=== PATIENT | male | born 1960 | race Caucasian/White ===

== ENCOUNTER 2016-03-20 13:43 | Outpatient (CLI) | payer MEDICARE, MEDICAID | END 2016-03-20 13:44 | disposition home or self-care (01) | DX: M19.011 Primary osteoarthritis, right shoulder (principal) ==

== ENCOUNTER 2016-07-09 10:46 | Outpatient (CLI) | payer MEDICARE, MEDICAID | END 2016-07-09 10:47 | disposition home or self-care (01) | DX: E11.65 Type 2 diabetes mellitus with hyperglycemia (principal); I10 Essential (primary) hypertension; E78.5 Hyperlipidemia, unspecified; Z12.5 Encounter for screening for malignant neoplasm of prostate; Z13.0 Encounter for screening for diseases of the blood and blood-forming organs and certain disorders involving the immune mechanism; Z78.9 Other specified health status; Z79.4 Long term (current) use of insulin | CPT/HCPCS: 36415; 80053; 80061; 83036; 84443; 85025; 86706; 86708; G0103 ==

== ENCOUNTER 2016-08-13 10:48 | Outpatient (CLI) | payer MEDICARE, MEDICAID ==
[2016-08-13 17:58] LABS: CALCIUM 8.8 mg/dL (8.5-10.3); CREATININE 1.2 mg/dL (0.6-1.2); POTASSIUM 3.4 mmol/L (3.5-5.0)
== END 2016-08-13 10:49 | disposition home or self-care (01) ==
LOC: LAB.F 10:48
PROVIDERS: ATTEND Nurse Practitioner Family
DX: N18.3 Chronic kidney disease, stage 3 (moderate) (principal)
CPT/HCPCS: 36415; 80048

== ENCOUNTER 2016-11-12 23:50 | Outpatient (CLI) | payer MEDICARE, MEDICAID | END 2016-11-12 23:51 | disposition home or self-care (01) | LOC: LAB.R 23:50 | PROVIDERS: ATTEND Family Medicine | DX: L97.329 Non-pressure chronic ulcer of left ankle with unspecified severity (principal) | CPT/HCPCS: 87070; 87205 ==

== ENCOUNTER 2017-03-29 14:43 | Outpatient (CLI) | payer MEDICARE, MEDICAID ==
[2017-03-29 18:14] LABS: HB2 TOTAL 10.6 g/dL; HEMOGLOBIN A1C 0.5 g/dL; HEMOGLOBIN A1C % 6.5 % (4.6-6.2)
[2017-03-29 18:22] LABS: ALBUMIN 3.3 g/dL (3.2-5.5); CALCIUM 8.4 mg/dL (8.5-10.3); CREATININE 1.1 mg/dL (0.6-1.2); PHOSPHORUS 3.1 mg/dL (2.5-4.6)
== END 2017-03-29 14:44 | disposition home or self-care (01) ==
LOC: LAB.F 14:43
PROVIDERS: ATTEND Acupuncturist
DX: E11.42 Type 2 diabetes mellitus with diabetic polyneuropathy (principal); E11.65 Type 2 diabetes mellitus with hyperglycemia
CPT/HCPCS: 36415; 80069; 83036

== ENCOUNTER 2017-04-23 08:00 | Outpatient (CLI) | payer MEDICARE, MEDICAID | END 2017-04-23 08:01 | disposition home or self-care (01) | LOC: LAB.R 08:00 | PROVIDERS: ATTEND Nurse Practitioner Family | DX: E11.9 Type 2 diabetes mellitus without complications (principal) | CPT/HCPCS: 82043 ==

== ENCOUNTER 2018-03-07 11:20 | Outpatient (CLI) | payer MEDICARE, MEDICAID ==
[2018-03-07 19:05] LABS: CALCIUM 8.8 mg/dL (8.5-10.3)
[2018-03-07 19:14] LABS: CREATININE,URINE 62.1 mg/dL; MICROALBUM/CREATININE RATIO,UR 20.9 ug/mg (<30.0); MICROALBUMIN,URINE 1.3 mg/dL (0-300.0)
[2018-03-07 19:53] LABS: HB2 TOTAL 11.7 g/dL; HEMOGLOBIN A1C 0.64 g/dL; HEMOGLOBIN A1C % 7.2 % (4.6-6.2)
== END 2018-03-07 11:21 | disposition home or self-care (01) ==
LOC: LAB.F 11:20
PROVIDERS: ATTEND Nurse Practitioner
DX: E11.65 Type 2 diabetes mellitus with hyperglycemia (principal); N52.9 Male erectile dysfunction, unspecified
CPT/HCPCS: 36415; 80048; 82043; 82570; 83036; 84403

== ENCOUNTER 2018-06-12 13:01 | Outpatient (CLI) | payer MEDICARE, MEDICAID ==
--- NOTE | 2018-06-13 09:31 | Ultrasound Report ---
Reason: ARTHRITIS,LEFT KNEE,TINGLING SENSATION Procedure Date: 06/12/2018 Accession Number: [id number] / [id number] Procedure: US - Ext Limited Non Vascular CPT Code: FULL RESULT: EXAM: LEFT LOWER EXTREMITY ULTRASOUND - LIMITED EXAM DATE: 06/12/2018 01:45 PM. CLINICAL HISTORY: Arthritis, left knee. Tingling sensation. COMPARISON: None. TECHNIQUE: Real-time scanning was performed with static images obtained. FINDINGS: Targeted evaluation of the left leg. The left lower leg is wrapped after treatment at the wound clinic. Diffuse soft tissue edema is noted in the tissue surrounding the left knee. No mass or obvious adenopathy identified. No evaluation of the venous structures was performed. An anterolateral left knee, there is a hypoechoic fluid collection measuring 5.1 x 7.7 x 2.6 cm. No vascular components or associated soft tissue abnormality is noted. IMPRESSION: 1. Diffuse soft tissue edema. Differential includes soft tissue infection such as cellulitis. 2. Fluid collection in anterolateral left knee measuring 5.1 x 7.7 x 2.6 cm. Imaging appearance is nonspecific but could represent a seroma. Additional considerations include an abscess or hematoma depending on the history. Favor seroma given the relative hypoechoic simple appearance. Nonetheless, an abscess or hematoma is not entirely excluded given imaging. [facility]
== END 2018-06-12 13:02 | disposition home or self-care (01) ==
LOC: DI 13:01
PROVIDERS: ATTEND Nurse Practitioner
DX: R60.0 Localized edema (principal); M25.462 Effusion, left knee; R20.2 Paresthesia of skin
CPT/HCPCS: 76882

== ENCOUNTER 2018-07-06 12:32 | Outpatient (CLI) | payer MEDICARE, MEDICAID ==
[2018-07-06 17:43] LABS: BASOPHILS # (AUTO) 0.1 10^3/uL (0.0-0.1); BASOPHILS % (AUTO) 0.7 %; EOSINOPHILS # (AUTO) 0.1 10^3/uL (0.0-0.7); EOSINOPHILS % (AUTO) 1.3 %; HGB - HEMOGLOBIN 10.7 g/dL (14.0-18.0); LYMPHOCYTES # (AUTO) 1.8 10^3/uL (1.5-3.5); LYMPHOCYTES % (AUTO) 24.5 %; MEAN CORPUSCULAR HEMOGLOBIN 23.9 pg (27.0-31.0); MEAN CORPUSCULAR HGB CONC 31.4 g/dL (32.0-36.0); MEAN CORPUSCULAR VOLUME 76.2 fL (80.0-94.0); MEAN PLATELET VOLUME 7.1 fL (7.4-11.4); MONOCYTES # (AUTO) 0.6 10^3/uL (0.0-1.0); MONOCYTES % (AUTO) 7.9 %; NEUTROPHILS # (AUTO) 4.8 10^3/uL (1.5-6.6); NEUTROPHILS % (AUTO) 65.6 %; PLT - PLATELET COUNT 372 10^3/uL (130-450); RED BLOOD COUNT 4.48 10^6/uL (4.70-6.10); RED CELL DISTRIBUTION WIDTH 17.8 % (12.0-15.0); WHITE BLOOD COUNT 7.3 x10^3/uL (4.8-10.8)
[2018-07-06 17:53] LABS: HEMOGLOBIN A1C 0.71 g/dL; HEMOGLOBIN A1C % 8.1 % (4.6-6.2)
[2018-07-06 18:02] LABS: ALBUMIN 3.3 g/dL (3.2-5.5); ALBUMIN/GLOBULIN RATIO 0.9 (1.0-2.2); ALKALINE PHOSPHATASE 57 IU/L (42-121); ALT ALANINE AMINOTRANSFERASE 16 IU/L (10-60); AST ASPARTATE AMINOTRANSFERASE 21 IU/L (10-42); BILIRUBIN,TOTAL 0.5 mg/dL (0.2-1.0); BUN - BLOOD UREA NITROGEN 18 mg/dL (6-20); CALCIUM 8.7 mg/dL (8.5-10.3); CARBON DIOXIDE - CO2 21 mmol/L (21-32); CHLORIDE 105 mmol/L (101-111); CHOL/HDL RATIO 6.1 (<5.0); CHOLESTEROL 184 mg/dL; GFR - MDRD 78 (>89); GLUCOSE 205 mg/dL (70-100); HDL CHOLESTEROL 30 mg/dL; LDL CHOLESTEROL,CALCULATED 114 mg/dL; LDL/HDL RATIO 3.8 (<3.6); SODIUM 135 mmol/L (135-145); VLDL CHOLESTEROL 40 mg/dL
== END 2018-07-06 12:33 | disposition home or self-care (01) ==
LOC: LAB.F 12:32
PROVIDERS: ATTEND Nurse Practitioner
DX: I10 Essential (primary) hypertension (principal); E78.5 Hyperlipidemia, unspecified; E11.9 Type 2 diabetes mellitus without complications
CPT/HCPCS: 36415; 80053; 80061; 82043; 83036; 83721; 85025

== ENCOUNTER 2018-09-23 14:51 | Emergency (ER) | payer MEDICARE, MEDICAID ==
[2018-09-23 15:21] LABS: BASOPHILS # (AUTO) 0.1 10^3/uL (0.0-0.1); BASOPHILS % (AUTO) 0.6 %; EOSINOPHILS # (AUTO) 0.3 10^3/uL (0.0-0.7); EOSINOPHILS % (AUTO) 3.4 %; HGB - HEMOGLOBIN 9.6 g/dL (14.0-18.0); LYMPHOCYTES # (AUTO) 2.1 10^3/uL (1.5-3.5); LYMPHOCYTES % (AUTO) 26.6 %; MEAN CORPUSCULAR HEMOGLOBIN 24.6 pg (27.0-31.0); MEAN CORPUSCULAR VOLUME 79.3 fL (80.0-94.0); MEAN PLATELET VOLUME 8.9 fL (7.4-11.4); MONOCYTES # (AUTO) 0.9 10^3/uL (0.0-1.0); MONOCYTES % (AUTO) 10.7 %; NEUTROPHILS # (AUTO) 4.7 10^3/uL (1.5-6.6); NEUTROPHILS % (AUTO) 58.3 %; PLT - PLATELET COUNT 325 10^3/uL (130-450); RED BLOOD COUNT 3.91 10^6/uL (4.70-6.10); RED CELL DISTRIBUTION WIDTH 17.5 % (12.0-15.0)
--- NOTE | 2018-09-23 15:27 | ED Physician Documentation ---
History of Present Illness - Stated complaint Stated Complaint: SOA/L HAND SWELL - Chief complaint Chief Complaint: Resp - History obtained from History obtained from: Patient - Additonal information Additional information: Patient is a 58-year-old male with history of hypertension, CHF, diabetes, neuropathy, right lower extremity amputation resenting with mild shortness of breath worsening over the past 2 weeks. Patient notes that he has not had his Lasix for this duration of time because of insurance issues. Patient reports he has been compliant with all other medications. Patient reports nonproductive cough, but denies fever, chest pain, abdominal pain, nausea, vomiting, urinary or stool changes. Patient reports generalized bloating including to his extremities and weight gain of possibly 50 pounds. Patient denies other skin changes except for rash to the groin area. No other improving or worsening factors noted. Review of Systems Constitutional: denies: Fever Cardiac: denies: Chest pain / pressure Respiratory: reports: Dyspnea, Cough GI: reports: Abdominal Swelling. denies: Abdominal Pain, Nausea, Vomiting, Diarrhea : denies: Dysuria Skin: reports: Rash PD PAST MEDICAL HISTORY - Past Medical History Cardiovascular: Hypertension, High cholesterol Respiratory: Sleep apnea, Other Neuro: Peripheral neuropathy Endocrine/Autoimmune: Type 2 diabetes GI: Chronic constipation, Hemorrhoids : Incontinence HEENT: Chronic vision loss, Other Psych: Depression, Eating disorder Musculoskeletal: None, Other Derm: Other drug resistant infections - Past Surgical History Past Surgical History: Yes General: Gastric surgery, Colonoscopy Ortho: Amputation, Other HEENT: Cataracts Derm: Debridement - Present Medications Home Medications: Ambulatory Orders Medication Instructions Recorded Confirmed Acetaminophen [Tylenol Extra 1,500 mg PO BID 07/08/12 03/23/18 Strength] RX: Aspirin Chewable [[place] 81 mg PO DAILY 07/08/12 03/23/18 Aspirin] RX: Flaxseed Oil 1,000 mg PO BID 03/06/15 03/23/18 RX: Fluoxetine HCl 60 mg PO DAILY 03/06/15 03/23/18 RX: Loratadine [Claritin] 10 - 20 mg PO DAILY PRN 03/06/15 03/23/18 RX: Topiramate [Topamax] 200 mg PO BID 03/06/15 03/23/18 RX: oxyCODONE [Roxicodone] 10 mg PO Q6H PRN 03/06/15 03/23/18 RX: traZODone [Desyrel] 100 mg PO DAILY PM PRN 03/06/15 03/23/18 Furosemide [Lasix] 40 mg PO DAILY 09/13/15 03/23/18 Docusate Sodium [Stool Softener] 1 - 2 tab PO BID 09/27/15 03/23/18 Multivitamin [Multivitamins] 1 cap PO DAILY 09/27/15 03/23/18 Oxycodone HCl [Oxycontin] 20 mg PO Q12H 11/22/15 03/23/18 RX: Lisinopril 10 mg PO DAILY 11/22/15 03/23/18 Calcium Citrate/Vitamin D3 200 - 250 mg PO BID 05/05/16 03/23/18 [Calcium Citrate - Vit D Caplet] Cyanocobalamin (Vitamin B-12) 2,500 mcg PO DAILY 05/05/16 03/23/18 [Vitamin B-12] Diclofenac Sodium [Voltaren] 4 gm TP Q6H PRN 05/05/16 03/23/18 Insulin Lispro [Humalog Kwikpen] 15 unit SQ QDAC 05/05/16 03/23/18 Insulin NPH Human [NovoLIN N] 50 unit SQ BID 05/05/16 03/23/18 Turmeric/Turmeric Root Extract 1,000 mg PO BID 05/05/16 03/23/18 [Turmeric] Vortioxetine Hydrobromide 10 mg PO DAILY 05/11/17 03/23/18 [Trintellix] Ciprofloxacin HCl [Cipro] 500 mg PO BID 06/07/18 06/07/18 RX: Ampicillin Trihydrate 500 mg PO QID 06/07/18 06/07/18 Furosemide [Lasix] 80 mg PO DAILY #14 tablet 09/23/18 - Allergies Allergies/Adverse Reactions: Allergies Allergy/AdvReac Type Severity Reaction Status Date / Time No Known Drug Allergies Allergy Verified 09/23/18 15:04 - Social History Does the pt smoke?: No Smoking Status: Never smoker Does the pt drink ETOH?: No Does the pt have substance abuse?: No - Immunizations Immunizations are current?: No - POLST Patient has POLST: No PD ED PE NORMAL - Vitals Vital signs reviewed: Yes - General General: Alert and oriented X 3, No acute distress, Well developed/nourished, Other (Morbidly obese) - HEENT HEENT: Atraumatic, Moist mucous membranes, Pharynx benign, Dentition benign - Cardiac Cardiac: RRR, No murmur - Respiratory Respiratory: No respiratory distress, Clear bilaterally - Abdomen Abdomen: Normal bowel sounds, Soft, Non tender, Non distended - Derm Derm: Warm and dry. No: Normal color (Venous stasis changes to left lower extremity. Mild erythema and induration to the lower pannus and groin.) - Extremities Extremities: No tenderness to palpate, Other (Below-knee amputation to right lower extremity. LETTY hose overlying the left leg with venous stasis changes present. No deformities or tenderness otherwise.) - Neuro Neuro: Alert and oriented X 3, No motor deficit, No sensory deficit (Patient at baseline per his neuropathy) - Psych Psych: Normal mood, Normal affect Results - Vitals Vitals: Vital Signs - 24 hr 09/23/18 09/23/18 09/23/18 15:01 15:30 17:00 Temperature 36.4 C L Heart Rate 93 78 76 Respiratory 18 14 14 Rate Blood Pressure 106/52 L 102/87 H 136/80 H O2 Saturation 98 97 98 Oxygen O2 Source Room air - EKG (time done) 1524 Rate: Rate (enter#) (75) Rhythm: NSR QRS: Low voltage - Labs Labs: Laboratory Tests 09/23/18 09/23/18 09/23/18 15:15 15:15 15:15 WBC 8.0 RBC 3.91 L Hgb 9.6 L Hct 31.0 L MCV 79.3 L MCH 24.6 L MCHC 31.0 L RDW 17.5 H Plt Count 325 MPV 8.9 Neut # (Auto) 4.7 Lymph # (Auto) 2.1 Ocean # (Auto) 0.9 Eos # (Auto) 0.3 Baso # (Auto) 0.1 Absolute Nucleated RBC 0.00 Nucleated RBC % 0.0 Sodium 143 Potassium 4.0 Chloride 112 H Carbon Dioxide 20 L Anion Gap 11.0 BUN 15 Creatinine 1.0 Estimated GFR (MDRD) 77 L Glucose 104 H Calcium 9.2 Total Bilirubin 0.7 AST 16 ALT 18 Alkaline Phosphatase 52 Troponin I 0.04 Troponin I High Sens 32.7 H* B-Natriuretic Peptide Total Protein 6.7 Albumin 3.4 Globulin 3.3 Albumin/Globulin Ratio 1.0 Lipase 24 09/23/18 15:15 WBC RBC Hgb Hct MCV MCH MCHC RDW Plt Count MPV Neut # (Auto) Lymph # (Auto) Ocean # (Auto) Eos # (Auto) Baso # (Auto) Absolute Nucleated RBC Nucleated RBC % Sodium Potassium Chloride Carbon Dioxide Anion Gap BUN Creatinine Estimated GFR (MDRD) Glucose Calcium Total Bilirubin AST ALT Alkaline Phosphatase Troponin I Troponin I High Sens B-Natriuretic Peptide 77 Total Protein Albumin Globulin Albumin/Globulin Ratio Lipase PD MEDICAL DECISION MAKING - ED course Complexity details: reviewed results, re-evaluated patient, considered differential, d/w patient ED course: Patient presenting with weight gain and worsening shortness of breath on exertion after being out of his Lasix for the past 2 weeks. Do feel that his symptoms today are directly related to noncompliance with diuretic and mild CHF. Patient adamantly denies other chest complaints that would raise high suspicion for PE, ACS, IL, unstable angina, dissection, aneurysm, but considered. EKG and troponin did not reflect ischemia. New hospital policy has instituted high-sensitivity troponin and this is ordered without direct physician control. High-sensitivity troponin did return elevated today, likely due to stress from shortness of breath and being off of Lasix. Do not feel this reflects an acute ischemic issue or underlying heart issue that requires emergent consult or intervention today. However, did discuss this finding with patient extensively. BNP is not significantly elevated. Chest x-ray is also relatively unremarkable except for as expected without florid CHF and did not show other concerning findings such as pneumonia. Do not feel patient requires nitroglycerin, consult, or hospitalization at this time, but provided Lasix prescription. Patient is aware of findings today and will plan to follow-up with his primary care physician as scheduled next week and also discussed possibly following up with cardiology as well. Patient voiced understanding and is comfortable with discharge plan. Departure - Departure Disposition: 01 Home, Self Care Clinical Impression: Congestive heart failure Condition: Good Instructions: ED CHF General, Lasix Follow-Up: MARIA GUADALUPE SANTOS MD [Primary Care Provider] - Within 3 Days Joseph Kelly MD [Physician No Access] - Within 3 Days Prescriptions: Furosemide [Lasix] 80 mg PO DAILY #14 tablet Comments: Please continue all home medications as previously instructed. Please resume Lasix as prescribed. Please follow-up with your primary care physician as scheduled next week or within the next to 3 days. Recommend follow-up with [facility]older such as [facility] given abnormal troponin reading today, which can also be addressed by her primary care physician as well next week. Return to ED sooner if experience worsening symptoms or have other concerns. Discharge Date/Time: 09/23/18 17:15
[2018-09-23] MEDS ORDERED: FUROSEMIDE 40 MG/4 ML VIAL IVP STA (15:34)
[2018-09-23 15:36] LABS: ALBUMIN 3.4 g/dL (3.2-5.5); BILIRUBIN,TOTAL 0.7 mg/dL (0.2-1.0); CALCIUM 9.2 mg/dL (8.5-10.3); TOTAL PROTEIN 6.7 g/dL (6.7-8.2)
[2018-09-23 15:40] LABS: TROPONIN I 0.04 ng/mL (<0.49)
--- NOTE | 2018-09-23 16:02 | XRAY Report ---
Reason: SOB Procedure Date: 09/23/2018 Accession Number: [id number] / [id number] Procedure: XR - Chest 1 View X-Ray CPT Code: 86051 FULL RESULT: EXAM: CHEST RADIOGRAPHY EXAM DATE: 09/23/2018 03:54 PM. CLINICAL HISTORY: Shortness of breath for a few days. COMPARISON: CHEST 2 VIEW PA/LAT 09/13/2012 1:11 PM. TECHNIQUE: 1 view. FINDINGS: The examination is limited by underpenetration and exclusion of the left costophrenic angle. Lungs/Pleura: No focal opacities evident. No pleural effusion. No pneumothorax. Mediastinum: Apparent interval increase in borderline mild cardiomegaly may be due to AP technique. Prominence of pulmonary arteries is again demonstrated. Other: None. IMPRESSION: Limited examination with possible borderline cardiomegaly, clarification could be achieved with a lateral radiographs. [facility]
[2018-09-23 17:03] VITALS: BP 136/80
== END 2018-09-23 17:15 | disposition home or self-care (01) ==
LOC: ED 14:51
DX: I50.9 Heart failure, unspecified (principal); T50.1X6A Underdosing of loop [high-ceiling] diuretics, initial encounter; Z91.138 Patient's unintentional underdosing of medication regimen for other reason; I10 Essential (primary) hypertension; E11.40 Type 2 diabetes mellitus with diabetic neuropathy, unspecified; Z79.4 Long term (current) use of insulin; Z89.511 Acquired absence of right leg below knee
CPT/HCPCS: 36415; 71045; 80053; 83690; 83880; 84484; 85025; 93005; 96374; 99283

== ENCOUNTER 2018-10-24 08:25 | Outpatient (CLI) | payer MEDICARE, MEDICAID | END 2018-10-24 08:26 | disposition E | LOC: EMS 08:25 | PROVIDERS: ATTEND Surgery ==